=== PATIENT | male | born 1990 | race Caucasian/White ===

== ENCOUNTER 2022-04-24 18:45 | Emergency (ER) | payer BC ==
[2022-04-24 19:32] LABS: CARBON DIOXIDE,CO2 23.3 mmol/L (21.0-32.0); POTASSIUM,K 3.7 mmol/L (3.5-5.1)
[2022-04-24 19:56] LABS: CORONAVIRUS COVID-19 NAA NEGATIVE (NEGATIVE); INFLUENZA A NAA NEGATIVE (NEGATIVE); INFLUENZA B NAA NEGATIVE (NEGATIVE)
== END 2022-04-24 21:29 | disposition home or self-care (01) ==
LOC: MW.ED 18:45
DX: R07.89 Other chest pain (principal); Z20.822 Contact with and (suspected) exposure to COVID-19
CPT/HCPCS: 0240U; 36415; 71045; 80053; 84484; 85025; 93005; 99285; 93010; 99283